=== PATIENT | female | born 1985 | race Caucasian/White ===

== ENCOUNTER 2023-08-07 20:37 | Emergency (ER) | payer MEDICAID ==
[~2023-08-07] VITALS: Ht 157.5 cm; Wt 55.0 kg
[2023-08-07 20:41] VITALS: BP 143/74; PULSE 82; RESP 17; TEMP 98.6; O2SAT 100
[2023-08-07] MEDS: methylnaltrexone br 12mg/0.6ml inj***SubQ only SQ ONE (22:08)
== END 2023-08-07 22:15 | disposition home or self-care (01) ==
LOC: ER 20:38
DX: K59.03 Drug induced constipation (principal); T40.2X5A Adverse effect of other opioids, initial encounter; Y92.89 Other specified places as the place of occurrence of the external cause
CPT/HCPCS: 96372; 99283; J2212

== ENCOUNTER 2023-08-08 17:29 | Emergency (ER) | payer MEDICAID ==
[~2023-08-08] VITALS: Ht 157.5 cm; Wt 57.2 kg
[2023-08-08 17:33] VITALS: BP 167/74; PULSE 76; O2SAT 100
[2023-08-08 18:30] VITALS: RESP 17; TEMP 98
== END 2023-08-08 18:34 | disposition home or self-care (01) ==
LOC: ER 17:29
DX: F30.9 Manic episode, unspecified (principal); H57.10 Ocular pain, unspecified eye
CPT/HCPCS: 99281

== ENCOUNTER 2024-02-15 04:03 | Emergency (ER) | payer MEDICAID ==
[~2024-02-15] VITALS: Ht 154.9 cm; Wt 57.6 kg
[2024-02-15 04:05] VITALS: BP 140/81; PULSE 84; TEMP 98.4; O2SAT 100
[2024-02-15] MEDS ORDERED: DIPH25CA83 PO (04:21)
[2024-02-15] MEDS ORDERED: PRED20TA PO (04:21)
[2024-02-15] MEDS: famotidine 20mg tablet PO ONE (04:25)
[2024-02-15] MEDS: diphenhydrAMINE 25mg capsule PO ONE (04:25)
[2024-02-15] MEDS: predniSONE 20 mg tablet PO ONE (04:25)
[2024-02-15] MEDS: acetaminophen 325mg tablet PO ONE (04:25)
[2024-02-15 05:48] VITALS: RESP 16
== END 2024-02-15 05:49 | disposition home or self-care (01) ==
LOC: ER 04:03
DX: L50.9 Urticaria, unspecified (principal); R51.9 Headache, unspecified
CPT/HCPCS: 99284; J7512; Q0163